=== PATIENT | female | born 1995 | race African-American/Black ===

== ENCOUNTER 2022-04-05 11:43 | Emergency (ER) | payer OTHER, SELFPAY ==
[2022-04-05 12:01] VITALS: BP 100/67; PULSE 75; RESP 18; TEMP 36.5; O2SAT 100
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
--- NOTE | 2022-04-05 12:47 | PC.NURSE ---
Fabiola LILLY RN and VIJAYA nurse in [facility] arrived to ED for pt eval.
--- NOTE | 2022-04-05 13:21 | PC.NURSE ---
2 [employer]'s in room for pt exam at this time. Requested sterile water and specimen containers - given to nurse as requested.
--- NOTE | 2022-04-05 15:37 | PC.NURSE ---
VIJAYA continues to examine patient, no requests at this time, orders placed by EDP Dr Nagy as requested (Not finished w/ exam at this time).
[2022-04-05] MEDS: ULIPRISTAL ACETATE 30 MG TABLET PO (16:10)
[2022-04-05 16:11] LABS: Basophils Percent Auto 0.5 % (0.2-1.2); Hematocrit 30.7 % (37.0-47.0); Hemoglobin 9.3 g/dL (12.0-15.0); Lymphocytes Absolute Auto 1.59 K/mm3 (0.9-3.2); Lymphocytes Percent Auto 38.7 % (18.3-44.2); Mean Corpuscular HGB Conc 30.3 g/dl (32-36); Mean Corpuscular Hemoglobin 22.8 pg (26-34); Mean Corpuscular Volume 75.2 fl (80-100); Monocytes Absolute Auto 0.4 K/mm3 (0.1-0.6); Monocytes Percent Auto 8.5 % (2.6-8.5); Neutrophils Absolute Auto 2.1 K/mm3 (1.3-6.7); Neutrophils Percent Auto 51.3 % (45.5-73.1); Platelet Count Result 220 k/mm3 (150-375); Red Blood Count 4.08 M/mm3 (4.2-5.4); White Blood Count 4.1 K/mm3 (4.5-10.0)
[2022-04-05 16:12] LABS: Alanine Aminotransferase 17 U/L (6-35); Alkaline Phosphatase 48 U/L (38-126); Anion Gap 7 mmol/L (8-16); Aspartate Amino Transferase 24 U/L (14-36); Bilirubin,Total 1.2 mg/dL (0.2-1.3); Blood Urea Nitrogen 6 mg/dL (7-17); Calcium 8.6 mg/dL (8.4-10.2); Carbon Dioxide 26 mmol/L (22-30); Chloride 107 mmol/L (98-107); Estimated CRCL calculation 90 ml/min; Estimated Glomerular Filt Rate > 60; Glucose 105 mg/dL (65-110); Potassium 3.1 mmol/L (3.4-5.0); Sodium 140 mmol/L (137-145)
[2022-04-05] MEDS: metroNIDAZOLE 250 MG TABLET 500 MG PO (16:15)
[2022-04-05] MEDS: cefTRIAXone 1 GM VIAL IM (16:15)
[2022-04-05] MEDS: DOXYCYCLINE HYCLATE 100 MG TABLET PO (16:15)
[2022-04-05] MEDS: LIDOCAINE HCL 1% LOCAL INJ 20 ML VIAL 2.1 ML XX (16:16)
[2022-04-05 16:20] VITALS: BP 133/82; PULSE 76; RESP 15; O2SAT 100
[2022-04-05] MEDS: POTASSIUM CHLORIDE 20 MEQ PACKET (FOR LIQUID) 40 MEQ PO (16:30)
[2022-04-05 16:52] LABS: HIV 1/2 Ab P24 Ag Result Negative (Negative)
[2022-04-05 16:54] LABS: Appearance Urine Slightly Cloudy (Clear); Bilirubin Urine Negative (Negative); Blood Urine Negative (Negative); Color Urine Yellow (Yellow); Glucose Urine UA Negative (Negative); Ketones Urine 1+ mg/dL (Negative); Leukocyte Esterase Ur 1+ LEU/UL (Negative); Nitrate Urine Negative (Negative); Protein Urine Negative (Negative)
[2022-04-05 17:02] LABS: Bacteria Urine Trace /hpf; Mucus Urine Rare /lpf; Squamous Epithelial Cell Urine Occasional /hpf (Few); WBC Urine 21-30 /hpf
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
[2022-04-05 17:06] LABS: Add Urine Microscopic? YES
[2022-04-10 21:54] LABS: Treponema pallidum Ab FTA ABS Nonreactive (Nonreactive)
== END 2022-04-05 17:40 | disposition home or self-care (01) ==
PROVIDERS: Emergency Provider Emergency Medicine
DX: T74.21XA Adult sexual abuse, confirmed, initial encounter (principal); D64.9 Anemia, unspecified; R30.0 Dysuria; F17.200 Nicotine dependence, unspecified, uncomplicated; Y07.499 Other family member, perpetrator of maltreatment and neglect
CPT/HCPCS: 36415; 80053; 81001; 81025; 85025; 85055; 86703; 86780; 87070; 87077; 87086; 87088; 87147; 87491; 87591; 87808; 96372; 99285; A9270; G0432; J0696

== ENCOUNTER 2023-08-29 00:01 | Emergency (ER) | payer OTHER, SELFPAY ==
--- NOTE | ~2023-08-29 | CT_ITS ---
CT of the Abdomen and Pelvis: Indication: Abdominal pain Technique: 2.5 mm axial scans were obtained through the abdomen and pelvis following intravenous adm inistration of 100 cc of Omnipaque 350. Dose reduction technique was used on this scan by utilizing a utomated exposure control and iterative reconstruction technique. The dose-length product (DLP) was 3 03.07 mGy-cm. Findings: Scans through the lung bases are unremarkable. The liver, spleen, pancreas, gallbladder, adrenals and kidneys are within normal limits. No evidence of aortic aneurysm. No lymphadenopathy. No bowel obstruction or bowel wall thickening. There is no evidence to suggest acute appendicitis. Images through the pelvis were performed. Urinary bladder unremarkable. No pelvic mass seen. Probable trace ascites. Impression: Trace pelvic ascites, nonspecific, but which can be physiologic in a young woman. No other significant findings. Reviewed, dictated and finalized at [facility]. Impression: Trace pelvic ascites, nonspecific, but which can be physiologic in a young woma n. No other significant findings.
[2023-08-29 00:04] VITALS: BP 102/72; PULSE 70; RESP 15; TEMP 36.6; O2SAT 100
[2023-08-29 00:32] LABS: Appearance Urine Clear (Clear); Bilirubin Urine Negative (Negative); Blood Urine Negative (Negative); Color Urine Yellow (Yellow); Glucose Urine UA Negative (Negative); Ketones Urine Negative (Negative); Leukocyte Esterase Ur Negative LEU/UL (Negative); Nitrate Urine Negative (Negative); Protein Urine Negative (Negative); Specific Grav Ur 1.004 (1.001-1.035); Urobilinogen Urine 0.2 mg/dL (<2.0); pH Urine 6.5 (5.0-9.0)
[2023-08-29 00:34] LABS: Basophils Percent Auto 0.5 % (0.2-1.2); Eosinophils Absolute Auto 0.2 K/mm3 (0-0.3); Eosinophils Percent Auto 3.7 % (0-4.4); Hematocrit 29.6 % (37.0-47.0); Hemoglobin 9.1 g/dL (12.0-15.0); Immature Granulocyte Absolute 0.01 K/mm3 (0.00-0.031); Immature Granulocyte Percent A 0.2 % (0-0.5); Immature Platelet Fraction Pct 10.4 % (0.9-11.2); Lymphocytes Percent Auto 47.8 % (18.3-44.2); Mean Corpuscular HGB Conc 30.7 g/dl (32-36); Mean Corpuscular Hemoglobin 22.8 pg (26-34); Mean Corpuscular Volume 74.2 fl (80-100); Monocytes Absolute Auto 0.7 K/mm3 (0.1-0.6); Monocytes Percent Auto 10.5 % (2.6-8.5); Neutrophils Absolute Auto 2.4 K/mm3 (1.3-6.7); Neutrophils Percent Auto 37.3 % (45.5-73.1); Platelet Count Result 212 k/mm3 (150-375); Red Blood Count 3.99 M/mm3 (4.2-5.4); Red Cell Distribution Width 19.4 % (11.5-14.5); White Blood Count 6.3 K/mm3 (4.5-10.0)
[2023-08-29 00:39] LABS: Alanine Aminotransferase 21 U/L (6-35); Albumin Level 4.3 g/dL (3.5-5.1); Alkaline Phosphatase 66 U/L (38-126); Anion Gap 5 mmol/L (8-16); Aspartate Amino Transferase 28 U/L (14-36); Bilirubin,Total 0.6 mg/dL (0.2-1.3); Blood Urea Nitrogen 11 mg/dL (7-17); Calcium 8.8 mg/dL (8.4-10.2); Carbon Dioxide 27 mmol/L (22-30); Chloride 104 mmol/L (98-107); Estimated CRCL calculation 82 ml/min; Estimated Glomerular Filt Rate > 60; Glucose 95 mg/dL (65-110); Lipase 243 U/L (23-300); Potassium 3.7 mmol/L (3.4-5.0); Sodium 136 mmol/L (137-145)
[2023-08-29 00:44] LABS: Add Urine Microscopic? NO
[2023-08-29 00:57] LABS: Anisocytosis 1+ (NORMAL); Large Platelets Present; Ovalocytes 1+ (NORMAL); Platelet Estimate Adequate (Adequate); Schistocytes Rare (NORMAL)
[2023-08-29 03:08] VITALS: BP 95/60; PULSE 60; RESP 15; TEMP 36.7; O2SAT 100
--- NOTE | 2023-08-29 06:12 | ED.GENADULT ---
HPI - General Adult General Chief complaint: Abdominal Pain Stated complaint: Abdominal pain Time Seen by Provider: 08/29/23 04:27 History of Present Illness HPI narrative: This is a 27-year-old female presenting ED with chief complaint of abdominal pain. It has been going on for 1 week, is an achy pain on the right side of her abdomen that is nonradiating, 6 out 10 intensity and comes and goes. She has never experienced pain like this for the neuro exacerbating alleviating symptoms. It is not associated with fever chills nausea vomiting diarrhea chest pain difficulty breathing or urinary symptoms. She has not taken anything for pain control. Related Data Allergies Allergy/AdvReac Type Severity Reaction Status Date / Time No Known Allergies Allergy Verified 08/29/23 03:36 [facility] Surgical History Surgical History (Updated 08/29/23 @ 06:16 by Eleuterio Petersen MD) S/P appy Social History Social History Smoking status: Current some day smoker Alcohol intake: current Substance use: never Gender identity (if verbalized by the patient): Female Exam Narrative: APPEARANCE: No apparent distress. Head: atraumatic. EYES: EOMI, NOSE: Atraumatic NECK: Trachea midline RESPIRATORY: No increased rate of breathing clear to auscultation CARDIOVASCULAR: RRR, ABDOMINAL: Non-distended , soft nontender no guarding rebound, no CVA tenderness MUSCULOSKELETAl: No obvious deformities NEURO: Alert. Moving 4/4 extremities SKIN:: Warm, dry. Normal color PSYCHIATRIC: Normal affect Course Vital Signs Vital signs: Vital Signs Temperature 98 F 08/29/23 00:04 Pulse Rate 70 08/29/23 00:04 Respiratory Rate 15 08/29/23 00:04 Blood Pressure 102/72 08/29/23 00:04 Pulse Oximetry 100 08/29/23 00:04 Oxygen Delivery Room Air 08/29/23 00:04 Temperature 98.1 F 08/29/23 03:08 Pulse Rate 60 08/29/23 03:08 Respiratory Rate 15 08/29/23 03:08 Blood Pressure 95/60 L 08/29/23 03:08 Pulse Oximetry 100 08/29/23 03:08 Oxygen Delivery Room Air 08/29/23 00:04 Medical Decision Making [facility] Narrative Medical decision making narrative: -Course: 19-year-old female presenting with right-sided abdominal pain. physical exam is benign. Vital signs are stable. Laboratory studies are within normal limits. CT abdomen pelvis was unremarkable. Upon re-evaluation patient is resting comfortably he is comfortable being discharged with primary care follow-up. Given return precautions. 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 CT abdomen pelvis benign. Urinalysis not indicative of infection. -Shared decision making / Disposition: Discharged with return precautions. -RX Motrin, Tylenol Vital Signs Vital Signs: Vital Signs Temperature 98 F 08/29/23 00:04 Pulse Rate 70 08/29/23 00:04 Respiratory Rate 15 08/29/23 00:04 Blood Pressure 102/72 08/29/23 00:04 Pulse Oximetry 100 08/29/23 00:04 Oxygen Delivery Room Air 08/29/23 00:04 Temperature 98.1 F 08/29/23 03:08 Pulse Rate 60 08/29/23 03:08 Respiratory Rate 15 08/29/23 03:08 Blood Pressure 95/60 L 08/29/23 03:08 Pulse Oximetry 100 08/29/23 03:08 Oxygen Delivery Room Air 08/29/23 00:04 Lab Data 08/29/23 00:19 08/29/23 00:19 Labs: Lab Results 08/29/23 08/29/23 Range/Units 00:19 00:23 WBC 6.3 (4.5-10.0) K/mm3 RBC 3.99 L (4.2-5.4) M/mm3 Hgb 9.1 L (12.0-15.0) g/dL Hct 29.6 L (37.0-47.0) % MCV 74.2 L (80-100) fl MCH 22.8 L (26-34) pg MCHC 30.7 L (32-36) g/dl RDW 19.4 H (11.5-14.5) % Plt Count 212 (150-375) k/mm3 MPV TNP Immature Gran % (Auto) 0.2 (0-0.5) % Neut
[2023-08-29 06:28] VITALS: BP 104/63; PULSE 65; RESP 14; O2SAT 100
[2023-08-29 07:46] LABS: Trichomonas Vag PCR NOT DETECTED (NOT DETECTE)
[2023-08-29 08:10] LABS: Chlamydia trachomatis NOT DETECTED (NOT DETECTE); Neisseria gonorrhoeae PCR NOT DETECTED (NOT DETECTE)
== END 2023-08-29 06:31 | disposition home or self-care (01) ==
PROVIDERS: Emergency Provider Emergency Medicine
DX: R10.9 Unspecified abdominal pain (principal); F17.200 Nicotine dependence, unspecified, uncomplicated
CPT/HCPCS: 36415; 74177; 80053; 81003; 81025; 83690; 85025; 85055; 87491; 87591; 87661; 99284; Q9967